=== PATIENT | female | born 1970 | race Caucasian/White ===

== ENCOUNTER → 2018-08-24 | Outpatient (CLI) | payer BC ==
[~2018-08-24] MED LIST: VALTREX 500 MG500 MG PO
== END ==
LOC: M.RAD 10:30
DX: Z12.31 Encounter for screening mammogram for malignant neoplasm of breast (principal)

== ENCOUNTER → 2020-08-27 | Outpatient (CLI) | payer BC | LOC: M.RAD 10:24 | PROVIDERS: ATTEND Internal Medicine | DX: Z12.31 Encounter for screening mammogram for malignant neoplasm of breast (principal) ==